=== PATIENT | male | born 1960 | race Caucasian/White ===

== ENCOUNTER 2016-07-13 19:07 | Emergency (ER) | payer OTHER ==
[2016-07-13 19:17] VITALS: RESP 16; TEMP 97.7
--- NOTE | 2016-07-13 19:34 | EDPHY ---
H & P Time Seen by Provider: 07/13/16 19:33 HPI/ROS: CHIEF COMPLAINT: HISTORY OF PRESENT ILLNESS: REVIEW OF SYSTEMS: Constitutional: No fever, no chills Eyes: No visual changes ENT: No sore throat Respiratory: No cough, no shortness of breath Cardiac: No chest pain Gastrointestinal: No nausea, no vomiting, no abdominal pain Genitourinary: No hematuria, no dysuria Musculoskeletal: No leg pain or swelling Skin: No rash Neurological: No headache, no numbness, no weakness Psychiatric: No depression Smoking Status: Never smoked Physical Exam: General Appearance: Alert, no distress Eyes: Pupils equal and round, no conjunctival pallor or injection ENT, Mouth: Mucous membranes moist Neck: Normal inspection Respiratory: Lungs are clear to auscultation Cardiovascular: Regular rate and rhythm Gastrointestinal: Abdomen is soft and non- tender Neurological: A&O, nonfocal, normal gait Skin: Warm and dry, no rash Extremities: Nontender, no pedal edema Psychiatric: Mood and affect normal Constitutional: Initial Vital Signs Temperature (C) 36.5 C 07/13/16 19:11 Heart Rate 48 L 07/13/16 19:11 Respiratory Rate 16 07/13/16 19:11 Blood Pressure 129/77 H 07/13/16 19:11 O2 Sat (%) 96 07/13/16 19:11 O2 Delivery Mode Room Air,Oxymizer Allergies/Adverse Reactions: No Known Allergies Allergy (Verified 07/13/16 19:19) Home Medications: Medication Instructions Recorded Lipitor 07/13/16 VITAMIN D 07/13/16 Warfarin Sodium 07/13/16 Medical Decision Making - Diagnostics Imaging Results: Imaging Impressions Chest X-Ray 07/13/16 19:15 Impression: No acute abnormality. Departure - Departure Referrals: ARLINE CHURCH [Primary Care Provider] - As per Instructions Report Scribed for: Chaya Simeon Report Scribed by: Melinda Delgado Date of Report: 07/13/16 Time of Report: 19:34 Physician Review and Approval Statement: 07/13/16 19:34 Portions of this note were transcribed by a medical device assembler. I personally performed a history, physical exam, medical decision making, and confirmed accuracy of information the transcribed note.
--- NOTE | 2016-07-13 19:36 | CPEKG ---
Heart Rate: 50 RR Interval: 1200 P-R Interval: 184 QRSD Interval: 86 QT Interval: 452 QTC Interval: 413 P [place]: 72 QRS [place]: 45 T Wave [place]: 45 EKG Severity - NORMAL ECG - EKG Impression: SINUS RHYTHM Electronically Signed By: Amandeep Rico 13-Jul-2016 19:39:52
--- NOTE | 2016-07-13 19:38 | EDPHY ---
H & P Time Seen by Provider: 07/13/16 19:25 HPI/ROS: CHIEF COMPLAINT: Right-sided chest pain HISTORY OF PRESENT ILLNESS: Patient has a history of a DVT; was treated and then anticoagulation stopped. This was followed by DVT and pulmonary embolism in 2009. In 2009 when he had pulmonary embolism he had been taken off warfarin. Tells me was tested and probably has factor 5 Leiden deficiency but he can' t remember the specifics of exactly what kind of pro coagulant disorder he has. Patient today complains of right-sided chest pain. It has been there a little bit over the past week much more today. He feels it more when he moves around for example in getting in and out of the car. It is associated with a little bit of worsening with deep breath. No associated leg swelling, no cough, no fever. No recent trauma. No radiation. REVIEW OF SYSTEMS: Eye: no change in vision ENT: no sore throat Cardiac: HPI Pulmonary: no cough or SOB Abdomen: no vomiting, diarrhea, abdominal pain Musculoskeletal: no back pain or leg swelling Skin: no rash Neuro: no headache Constitutional: no fever : no urinary symptoms A comprehensive 10 point review of systems is otherwise negative aside from elements mentioned in the history of present illness. PAST MEDICAL HISTORY: DVT and pulmonary embolism on warfarin Social history: Here with family General Appearance: Alert and conversant, cooperative. Eyes: No scleral icterus. ENT, Mouth: Normal mucous membranes. Respiratory: Normal respiratory effort, breath sounds equal, lungs are clear to auscultation. Cardiovascular: Regular rate and rhythm. Gastrointestinal: Abdomen is soft and non tender. Neurological: Alert and oriented x3. Normally conversant. Face symmetric, normal movement and sensation in all extremities. Skin: Warm and dry, no rashes. Musculoskeletal: Patient has some tenderness to palpation on the anterior chest around his nipple area. No calf tenderness. Psychiatric: Not agitated. Emergency Department course/MDM: Unlikely to be acute coronary syndrome with pleuritic right-sided chest pain and normal EKG. Moderate suspicion for pulmonary embolism, will check protime and to chest CT, discussed and consented. Results discussed with patient and family. Most likely inflammatory or muscular. Symptomatic treatment, stable for DC. Smoking Status: Never smoked Constitutional: Initial Vital Signs Temperature (C) 36.5 C 07/13/16 19:11 Heart Rate 48 L 07/13/16 19:11 Respiratory Rate 16 05/10/17 19:11 Blood Pressure 129/77 H 07/13/16 19:11 O2 Sat (%) 96 07/13/16 19:11 O2 Delivery Mode Room Air Allergies/Adverse Reactions: No Known Allergies Allergy (Verified 07/13/16 19:19) Home Medications: Medication Instructions Recorded Lipitor 07/13/16 VITAMIN D 07/13/16 Warfarin Sodium 07/13/16 Medical Decision Making - Diagnostics EKG Interpretation: 12-lead EKG interpreted by me; official reading is in trace master. My interpretation is sinus rhythm at a rate of 50 with no acute ischemic changes. Imaging Results: Imaging Impressions Chest X-Ray 07/13/16 19:15 Impression: No acute abnormality. Chest/Thorax CTA 07/13/16 19:39 Impression: 1. There is no CT evidence of residual or recurrent pulmonary artery thromboemboli. 2. Right basilar subsegmental atelectasis. 3. Stable small left hepatic lobe cyst, compared to 2011. 4. Mild splenomegaly. 5. Sequela of old granulomatous disease. Findings were discussed with CORTNEY FELICIANO MD at 20:34, on 07/13/2016. Chest CT shows atelectasis, no PE, per Luz at 2036. Differential Diagnosis: Differential diagnosis considered for chest pain including but not limited to myocardial ischemia, aortic dissection, pericarditis, pulmonary embolus, chest wall pain, pleural inflammation and pulmonary infectious causes. - Data Points Laboratory Results: 07/13/16 07/13/16 19:39 19:37 POC Hgb 15.6 gm/dL gm/dL (14.5-17.3) POC Hct 46 % % (42.8-50.6) PT 24.9 SEC H SEC (12.0-15.0) INR 2.23 H (0.83-1.16) POC Sodium 141 mEq/L mEq/L (134-144) POC Potassium 3.5 mEq/L mEq/L (3.3-5.0) POC Chloride 101 mEq/L mEq/L (96-108) POC BUN 12 mg/dL mg/dL (7-23) POC Creatinine 0.8 mg/dL mg/dL (0.8-1.5) POC Glucose 106 mg/dL H mg/dL (70-100) Point of Care Test Results: 07/13/16 19:37 POC Sodium 141 POC Potassium 3.5 POC Chloride 101 POC BUN 12 POC Creatinine 0.8 POC Glucose 106 H Departure - Departure Disposition: Home, Routine, Self-Care Clinical Impression: Chest pain Condition: Good Instructions: Chest Pain (ED) Additional Instructions: No pulmonary embolism on CT angiogram today. Your INR is 2.23 tonight. Referrals: ARLINE CHURCH [Primary Care Provider] - As per Instructions
[2016-07-13] MEDS ORDERED: IOPAMIDOL (ISOVUE 370) 100 ML BTL IV ONE (19:45)
[2016-07-13 19:59] LABS: INR 2.23 (0.83-1.16); PROTIME(PATIENT) 24.9 SEC (12.0-15.0)
[2016-07-13 20:47] VITALS: BP 102/74; PULSE 49; O2SAT 97
== END 2016-07-13 20:47 | disposition home or self-care (01) ==
DX: R07.9 Chest pain, unspecified (principal); Z79.01 Long term (current) use of anticoagulants
CPT/HCPCS: 82947-QW; Q9967